=== PATIENT | female | born 1980 | race Caucasian/White ===

== ENCOUNTER 2018-04-20 21:34 | Emergency (ER) | payer OTHER, MEDICAID, SELFPAY ==
[2018-04-20 21:49] VITALS: BP 132/74; PULSE 80; RESP 18; TEMP 37.3; O2SAT 98; BMI 33.7
[2018-04-20 22:54] VITALS: BP 140/75; PULSE 90; RESP 19; O2SAT 100
--- NOTE | 2018-04-20 22:59 | DI.US.S_ITS ---
PROCEDURE: US OB <= 14 WEEKS FETUS INDICATIONS: 7weeks , pelvic pain, spotting OUTSIDE/PRIOR DATING DATA: Last menstrual period (LMP): Unknown LMP-based estimated date of delivery (RAGHAV): N./A.. First dating scan (date and location): 04/20/18. Estimated date of delivery (RAGHAV) from first dating scan: 12/11/18. TECHNIQUE: Real-time scanning was performed of the fetus and maternal pelvic organs, with image documentation. Endovaginal scanning was also performed to better visualize the fetus and maternal ovaries. COMPARISON: None. FINDINGS: Embryo: [place]-rump length measures 6 mm corresponding to 6 weeks 3 days. Heart rate measures 122 beats per minute. No perigestational site bleed. Measurement variability in dating: +/- 4 weeks by LMP, +/- 7 days by mean sac diameter (use before 6 weeks gestation if crown-rump length not able to be measured), +/- 5 days by crown-rump length (up to 8 weeks 6 days gestation), +/- 7 days by crown-rump length (up to 13 weeks 6 days gestation). Maternal organs: Ovaries within normal limits. No adnexal masses. Impression: 6 week 3 day single living IUP. Dictated by: Hunter Christie [facility] Interpreted: Juan Roach MD on 04/21/2018 at 7:45 Approved by: Juan Roach M.D. on 04/21/2018 at 14:50
[2018-04-20 23:17] LABS: Add Manual Diff / Slide Review NO; Basophils Percent Auto 0.8 % (0-2); Eosinophils Percent Auto 1.1 % (2-4); Hematocrit 39.7 % (36-46); Hemoglobin 13.7 g/dL (12.0-16.0); Lymphocytes Percent Auto 27.7 % (25-40); Mean Corpuscular HGB Conc 34.6 % (30-36); Mean Corpuscular Hemoglobin 32.4 PG (26-34); Mean Corpuscular Volume 93.5 fL (80-100); Monocytes Percent Auto 6.6 % (3-14); Neutrophils Absolute Auto 6400 /uL (3000-5900); Neutrophils Percent Auto 63.8 % (50-75); Platelet Count 202 X10^3/uL (150-400); Red Blood Cell Count 4.24 X10^6/uL (4.0-5.2); Red Cell Distribution Width 13.7 % (11.6-14.8)
[2018-04-20 23:29] LABS: Alanine Aminotransferase 27 IU/L (9-52); Albumin 4.3 g/dL (3.5-5.0); Albumin Globulin Ratio 1.4 (1.0-2.8); Alkaline Phosphatase 53 U/L (38-126); Aspartate Aminotransferase 20 IU/L (14-36); Bilirubin Total 0.5 mg/dL (0.2-1.3); Blood Urea Nitrogen 10 mg/dL (7-17); Calcium 9.6 mg/dL (8.4-10.2); Carbon Dioxide 22 mmol/L (22-32); Chloride 104 mmol/L (98-107); Estimated Glomerular Filt Rate > 60.0 mL/min (>60); Glucose 81 mg/dL (70-100); HEMOLYSIS < 15 (0-50); Potassium 3.5 mmol/L (3.4-5.1); Sodium 138 mmol/L (137-145); Total Protein 7.3 g/dL (6.3-8.2)
--- NOTE | 2018-04-21 00:03 | ED.FEMALEGU ---
HPI - Female Genitourinary General Chief complaint: OB/Uterine Contractions Stated complaint: VAGINAL DISCHARGE, POSSIBLY Time Seen by Provider: 04/20/18 22:13 Source: patient Mode of arrival: ambulatory Limitations: no limitations History of Present Illness HPI Narrative: Patient is a at 7 weeks with a chief complaint mild pinkish discharge and some suprapubic tenderness over the course of the day. She denies provocation, palliation or radiation of her symptoms. She denies fever or chills. She has had no nausea or vomiting. She denies any other vaginal discharge nor dysuria, frequency or urgency. MD Complaint: pelvic pain Onset (ago): hour(s) Location: suprapubic Female Urogenital Radiation: Suprapubic Severity: mild Quality: Cramping Duration: constant Relieving factors: none Exacerbating factors: none Vaginal discharge: other (Pinkish) Patient : Yes Associated symptoms: denies other symptoms Related Data Previous Rx's Medication Instructions Recorded amoxicillin 500 mg PO BID #20 tab 07/20/17 Allergies Allergy/AdvReac Type Severity Reaction Status Date / Time pollen extracts Allergy Unknown Unverified 11/17/17 12:54 [POLLEN EXTRACTS] CATS Allergy Unknown Uncoded 11/17/17 12:54 Review of Systems Review of Systems All systems reviewed & are unremarkable except as noted in HPI and below Constitutional Denies chills, Denies fever(s), Denies lethargy and Denies weakness Eyes Denies change in vision, Denies eye discharge, Denies irritation and Denies loss of vision ENT Ears, Nose, Mouth, and Throat: Denies change in voice, Denies neck pain and Denies sore throat Cardiovascular Denies chest pain, Denies irregular heart rhythm, Denies lightheadedness, Denies palpitations, Denies dyspnea, Denies dyspnea on exertion and Denies orthopnea Respiratory Denies cough, Denies dyspnea, Denies dyspnea on exertion and Denies wheezing Gastrointestinal Gastrointestinal: Denies abdominal pain, Denies change in bowel habits, Denies diarrhea, Denies nausea and Denies vomiting Genitourinary Reports abnormal vaginal bleeding, Denies hematuria, Denies flank pain, Denies urinary incontinence and Denies urinary urgency Musculoskeletal Denies neck pain Integumentary/Breasts Denies pruritus, Denies erythema, Denies rash and Denies wounds Neurologic Denies confusion, Denies loss of vision and Denies weakness Psychiatric Denies anxiety, Denies confusion, Denies depression, Denies homicidal ideation and Denies suicidal ideation Endocrine Denies palpitations Hematologic/Lymphatic Denies easy bruising Allergic/Immunologic Denies wheezing [facility] Social History Smoking Status: Former smoker Exam Narrative Exam Narrative: GEN: AOx3 and in mild distress EYES: Pupils are equal, round, and reactive to light and accommodation. Extraoccular muscles are intact bilaterally. There is no subconjunctival hemorrhage or exudate. CHEST: Lungs are clear to auscultation bilaterally and free of wheezes, rales, or rhonchi. Heart rate is regular rhythm, there are no murmurs, clicks, rubs, or gallops. There is no chest wall tenderness. ABD: Abdomen is soft and nontender. There is no guarding or rebound. Bowel sounds are normal in all 4 quadrants. There is no mass or organomegaly. EXT: Full painless ROM of all extremities with no loss of sensation or strength. SKIN: Warm, pink, and dry. No erythema or rash Initial Vital Signs Initial Vital Signs: Vital Signs Temperature 99.2 F 04/20/18 21:49 Pulse Rate 80 04/20/18 21:49 Respiratory Rate 18 04/20/18 21:49 Blood Pressure 132/74 04/20/18 21:49 Pulse Oximetry 98 04/20/18 21:49 Course Orders Ordered: ED Orders 04/20/18 22:59 US OB <= 14 weeks fetus Stat 04/20/18 23:05 ABO RH Type Stat Complete Blood Count AUTO DIFF Stat Comprehensive Metabolic Panel Stat Vital Signs - 8 hr 04/20/18 21:49 04/20/18 22:54 Temperature 99.2 F Pulse Rate 80 90 Respiratory Rate 18 19 Blood Pressure 132/74 Blood Pressure [Left Arm] 140/75 Pulse Oximetry 98 100 MDM - Female Genitourinary Medical Records Attestation: I reviewed the patient's medical records. Lab Data Result diagrams: 04/20/18 23:05 04/20/18 23:05 Lab Results 04/20/18 04/20/18 04/20/18 Range/Units 23:05 23:05 23:05 WBC 10.0 (4.5-11.0) X10^3/uL RBC 4.24 (4.0-5.2) X10^6/uL Hgb 13.7 (12.0-16.0) g/dL Hct 39.7 (36-46) % MCV 93.5 (80-100) fL MCH 32.4 (26-34) PG MCHC 34.6 (30-36) % RDW 13.7 (11.6-14.8) % Plt Count 202 (150-400) X10^3/uL Neut % (Auto) 63.8 (50-75) % Lymph % (Auto) 27.7 (25-40) % [place] % (Auto) 6.6 (3-14) % Eos % (Auto) 1.1 L (2-4) % Baso % (Auto) 0.8 (0-2) % Neut # (Auto) 6400 H (5188-7071) /uL Sodium 138 (137-145) mmol/L Potassium 3.5 (3.4-5.1) mmol/L Chloride 104 (98-107) mmol/L Carbon Dioxide 22 (22-32) mmol/L BUN 10 (7-17) mg/dL Creatinine 0.50 L (0.52-1.04) mg/dL Estimated GFR > 60.0 (>60) mL/min BUN/Creatinine Ratio 20.0 (6-22) Glucose 81 (70-100) mg/dL Calcium 9.6 (8.4-10.2) mg/dL Total Bilirubin 0.5 (0.2-1.3) mg/dL AST 20 (14-36) IU/L ALT 27 (9-52) IU/L Alkaline Phosphatase 53 (38-126) U/L Total Protein 7.3 (6.3-8.2) g/dL Albumin 4.3 (3.5-5.0) g/dL Globulin 3.0 (1.7-4.1) g/dL Albumin/Globulin Ratio 1.4 (1.0-2.8) Blood Type A Positive Point of Care Testing Test Results Positive Urine Dip Bedside Urine Glucose Negative Bedside Urine Bilirubin - Negative Bedside Urine Ketone +++ 80 Urine Specific [place] 1.030 Bedside Urine Occult Blood - Negative Bedside Urine pH 6.0 Bedside Urine Protein +/- 15 Bedside Urine Urobilinogen - Negative Bedside Urine Nitrite - Negative Bedside Urine Leukocytes - Negative Esterase Imaging Data US - abdomen: Radiologist's impression: [address] [address] Ultrasound Report Signed Patient: Ericka OsorioMR#: [id number] : 1980Acct:[id number] Age/Sex: 37 / FDate of Service: 04/20/18 Loc: ED Accession Number: [id number] Procedure: US OB <= 14 weeks fetus Ordering Provider: Walt Acharya D.O. PROCEDURE: US OB <= 14 WEEKS FETUS INDICATIONS: 7weeks , pelvic pain, spotting OUTSIDE/PRIOR DATING DATA: Last menstrual period (LMP): Unknown LMP-based estimated date of delivery (RAGHAV): N./A.. First dating scan (date and location): 04/20/18. Estimated date of delivery (RAGHAV) from first dating scan: 12/11/18. TECHNIQUE: Real-time scanning was performed of the fetus and maternal pelvic organs, with image documentation. Endovaginal scanning was also performed to better visualize the fetus and maternal ovaries. COMPARISON: None. FINDINGS: Embryo: [place]-rump length measures 6 mm corresponding to 6 weeks 3 days. Heart rate measures 122 beats per minute. No perigestational site bleed. Measurement variability in dating: +/- 4 weeks by LMP, +/- 7 days by mean sac diameter (use before 6 weeks gestation if crown-rump length not able to be measured), +/- 5 days by crown-rump length (up to 8 weeks 6 days gestation), +/- 7 days by crown-rump length (up to 13 weeks 6 days gestation). Maternal organs: Ovaries within normal limits. No adnexal masses. Impression: 6 week 3 day single living IUP. Dictated by: Hunter Christie [facility] Interpreted: Juan Roach MD on 04/21/2018 at 7:45 Approved by: Juan Roach M.D. on 04/21/2018 at 14:50 Discharge Plan Departure Patient Disposition: Home Clinical Impression: Pelvic pain affecting Discharge Date/Time: 04/21/18 00:48 Interventions: ED Discharge Assessment Last Done: 04/21/18 00:47 Instructions: DI for Pelvic Pain Activity Restrictions/Additional Instructions: *You have been diagnosed with [ pelvic pain in ] *What to do: *Follow up with Dr. Cat, call for an appointment. Let them know you were seen in the Emergency Department and that we ask that you be seen in follow up *Return to ER if you should have any new, worsening or concerning symptoms, such as [increased bleeding, pain or fever over 101 F ] Prescriptions: No Action amoxicillin 500 MG tablet 500 mg PO BID Qty: 20 RF: 0 Referrals: Mala Cat MD [Primary Care Provider] -
[2018-04-21 00:47] VITALS: BP 106/70; PULSE 80; RESP 18; O2SAT 98
--- NOTE | 2018-04-22 04:32 | ED_ITS ---
HPI - Female Genitourinary General Chief complaint: OB/Uterine Contractions Stated complaint: VAGINAL DISCHARGE, POSSIBLY Time Seen by Provider: 04/20/18 22:13 Source: patient Mode of arrival: ambulatory Limitations: no limitations History of Present Illness HPI Narrative: Patient is a at 7 weeks with a chief complaint mild pinkish discharge and some suprapubic tenderness over the course of the day. She denies provocation, palliation or radiation of her symptoms. She denies fever or chills. She has had no nausea or vomiting. She denies any other vaginal discharge nor dysuria, frequency or urgency. MD Complaint: pelvic pain Onset (ago): hour(s) Location: suprapubic Female Urogenital Radiation: Suprapubic Severity: mild Quality: Cramping Duration: constant Relieving factors: none Exacerbating factors: none Vaginal discharge: other (Pinkish) Patient : Yes Associated symptoms: denies other symptoms Related Data Previous Rx's Medication Instructions Recorded amoxicillin 500 mg PO BID #20 tab 07/20/17 Allergies Allergy/AdvReac Type Severity Reaction Status Date / Time pollen extracts Allergy Unknown Unverified 11/17/17 12:54 [POLLEN EXTRACTS] CATS Allergy Unknown Uncoded 11/17/17 12:54 Review of Systems Review of Systems All systems reviewed & are unremarkable except as noted in HPI and below Constitutional Denies chills, Denies fever(s), Denies lethargy and Denies weakness Eyes Denies change in vision, Denies eye discharge, Denies irritation and Denies loss of vision ENT Ears, Nose, Mouth, and Throat: Denies change in voice, Denies neck pain and Denies sore throat Cardiovascular Denies chest pain, Denies irregular heart rhythm, Denies lightheadedness, Denies palpitations, Denies dyspnea, Denies dyspnea on exertion and Denies orthopnea Respiratory Denies cough, Denies dyspnea, Denies dyspnea on exertion and Denies wheezing Gastrointestinal Gastrointestinal: Denies abdominal pain, Denies change in bowel habits, Denies diarrhea, Denies nausea and Denies vomiting Genitourinary Reports abnormal vaginal bleeding, Denies hematuria, Denies flank pain, Denies urinary incontinence and Denies urinary urgency Musculoskeletal Denies neck pain Integumentary/Breasts Denies pruritus, Denies erythema, Denies rash and Denies wounds Neurologic Denies confusion, Denies loss of vision and Denies weakness Psychiatric Denies anxiety, Denies confusion, Denies depression, Denies homicidal ideation and Denies suicidal ideation Endocrine Denies palpitations Hematologic/Lymphatic Denies easy bruising Allergic/Immunologic Denies wheezing [facility] Social History Smoking Status: Former smoker Exam Narrative Exam Narrative: GEN: AOx3 and in mild distress EYES: Pupils are equal, round, and reactive to light and accommodation. Extraoccular muscles are intact bilaterally. There is no subconjunctival hemorrhage or exudate. CHEST: Lungs are clear to auscultation bilaterally and free of wheezes, rales, or rhonchi. Heart rate is regular rhythm, there are no murmurs, clicks, rubs, or gallops. There is no chest wall tenderness. ABD: Abdomen is soft and nontender. There is no guarding or rebound. Bowel sounds are normal in all 4 quadrants. There is no mass or organomegaly. EXT: Full painless ROM of all extremities with no loss of sensation or strength. SKIN: Warm, pink, and dry. No erythema or rash Initial Vital Signs Initial Vital Signs: Vital Signs Temperature 99.2 F 04/20/18 21:49 Pulse Rate 80 04/20/18 21:49 Respiratory Rate 18 04/20/18 21:49 Blood Pressure 132/74 04/20/18 21:49 Pulse Oximetry 98 04/20/18 21:49 Course Orders Ordered: ED Orders 04/20/18 22:59 US OB <= 14 weeks fetus Stat 04/20/18 23:05 ABO RH Type Stat Complete Blood Count AUTO DIFF Stat Comprehensive Metabolic Panel Stat Vital Signs - 8 hr 04/20/18 21:49 04/20/18 22:54 Temperature 99.2 F Pulse Rate 80 90 Respiratory Rate 18 19 Blood Pressure 132/74 Blood Pressure [Left Arm] 140/75 Pulse Oximetry 98 100 MDM - Female Genitourinary Medical Records Attestation: I reviewed the patient's medical records. Lab Data Result diagrams: 04/20/18 23:05 04/20/18 23:05 Lab Results 04/20/18 04/20/18 04/20/18 Range/Units 23:05 23:05 23:05 WBC 10.0 (4.5-11.0) X10^3/uL RBC 4.24 (4.0-5.2) X10^6/uL Hgb 13.7 (12.0-16.0) g/dL Hct 39.7 (36-46) % MCV 93.5 (80-100) fL MCH 32.4 (26-34) PG MCHC 34.6 (30-36) % RDW 13.7 (11.6-14.8) % Plt Count 202 (150-400) X10^3/uL Neut % (Auto) 63.8 (50-75) % Lymph % (Auto) 27.7 (25-40) % [place] % (Auto) 6.6 (3-14) % Eos % (Auto) 1.1 L (2-4) % Baso % (Auto) 0.8 (0-2) % Neut # (Auto) 6400 H (3075-2697) /uL Sodium 138 (137-145) mmol/L Potassium 3.5 (3.4-5.1) mmol/L Chloride 104 (98-107) mmol/L Carbon Dioxide 22 (22-32) mmol/L BUN 10 (7-17) mg/dL Creatinine 0.50 L (0.52-1.04) mg/dL Estimated GFR > 60.0 (>60) mL/min BUN/Creatinine Ratio 20.0 (6-22) Glucose 81 (70-100) mg/dL Calcium 9.6 (8.4-10.2) mg/dL Total Bilirubin 0.5 (0.2-1.3) mg/dL AST 20 (14-36) IU/L ALT 27 (9-52) IU/L Alkaline Phosphatase 53 (38-126) U/L Total Protein 7.3 (6.3-8.2) g/dL Albumin 4.3 (3.5-5.0) g/dL Globulin 3.0 (1.7-4.1) g/dL Albumin/Globulin Ratio 1.4 (1.0-2.8) Blood Type A Positive Point of Care Testing Test Results Positive Urine Dip Bedside Urine Glucose Negative Bedside Urine Bilirubin - Negative Bedside Urine Ketone +++ 80 Urine Specific [place] 1.030 Bedside Urine Occult Blood - Negative Bedside Urine pH 6.0 Bedside Urine Protein +/- 15 Bedside Urine Urobilinogen - Negative Bedside Urine Nitrite - Negative Bedside Urine Leukocytes - Negative Esterase Imaging Data US - abdomen: Radiologist's impression: [address] [address] Ultrasound Report Signed Patient: Ericka OsorioMR#: [id number] : 1980Acct:[id number] Age/Sex: 37 / FDate of Service: 04/20/18 Loc: ED Accession Number: [id number] Procedure: US OB <= 14 weeks fetus Ordering Provider: Walt Acharya D.O. PROCEDURE: US OB <= 14 WEEKS FETUS INDICATIONS: 7weeks , pelvic pain, spotting OUTSIDE/PRIOR DATING DATA: Last menstrual period (LMP): Unknown LMP-based estimated date of delivery (RAGHAV): N./A.. First dating scan (date and location): 04/20/18. Estimated date of delivery (RAGHAV) from first dating scan: 12/11/18. TECHNIQUE: Real-time scanning was performed of the fetus and maternal pelvic organs, with image documentation. Endovaginal scanning was also performed to better visualize the fetus and maternal ovaries. COMPARISON: None. FINDINGS: Embryo: [place]-rump length measures 6 mm corresponding to 6 weeks 3 days. Heart rate measures 122 beats per minute. No perigestational site bleed. Measurement variability in dating: +/- 4 weeks by LMP, +/- 7 days by mean sac diameter (use before 6 weeks gestation if crown-rump length not able to be measured), +/ - 5 days by crown-rump length (up to 8 weeks 6 days gestation), +/- 7 days by crown-rump length (up to 13 weeks 6 days gestation). Maternal organs: Ovaries within normal limits. No adnexal masses. Impression: 6 week 3 day single living IUP. Dictated by: Hunter Christie [facility] Interpreted: Juan Roach MD on 04/21/2018 at 7: 45 Approved by: Juan Roach M.D. on 04/21/2018 at 14:50 Discharge Plan Departure Patient Disposition: Home Clinical Impression: Pelvic pain affecting Discharge Date/Time: 04/21/18 00:48 Interventions: ED Discharge Assessment Last Done: 04/21/18 00:47 Instructions: DI for Pelvic Pain Activity Restrictions/Additional Instructions: *You have been diagnosed with [ pelvic pain in ] *What to do: *Follow up with Dr. Cat, call for an appointment. Let them know you were seen in the Emergency Department and that we ask that you be seen in follow up *Return to ER if you should have any new, worsening or concerning symptoms , such as [increased bleeding, pain or fever over 101 F ] Prescriptions: No Action amoxicillin 500 MG tablet 500 mg PO BID Qty: 20 RF: 0 Referrals: Mala Cat MD [Primary Care Provider] -
== END 2018-04-21 00:48 | disposition home or self-care (01) ==
PROVIDERS: Emergency Provider Emergency Medicine; PCP Obstetrics & Gynecology
DX: O26.891 Other specified pregnancy related conditions, first trimester (principal); R10.2 Pelvic and perineal pain; Z3A.08 8 weeks gestation of pregnancy
CPT/HCPCS: 36415; 76801; 76817; 80053; 81003; 81025; 85025; 86900; 86901; 99282; 99284

== ENCOUNTER → 2018-05-02 14:06 | Outpatient (CLI) | payer OTHER, MEDICAID, SELFPAY ==
[2018-05-02 14:32] LABS: Add Manual Diff / Slide Review NO; Basophils Percent Auto 0.4 % (0-2); Eosinophils Percent Auto 0.5 % (2-4); Hematocrit 39.6 % (36-46); Hemoglobin 13.5 g/dL (12.0-16.0); Lymphocytes Percent Auto 20.7 % (25-40); Mean Corpuscular Hemoglobin 32.3 PG (26-34); Monocytes Percent Auto 5.1 % (3-14); Neutrophils Absolute Auto 5800 /uL (3000-5900); Neutrophils Percent Auto 73.3 % (50-75); Platelet Count 221 X10^3/uL (150-400); Red Blood Cell Count 4.17 X10^6/uL (4.0-5.2); Red Cell Distribution Width 13.9 % (11.6-14.8); White Blood Cell Count 7.9 X10^3/uL (4.5-11.0)
[2018-05-02 14:35] LABS: Appearance Urine UA CLEAR; Bilirubin Urine UA NEGATIVE (NEGATIVE); Color Urine UA YELLOW; Glucose Urine UA NEGATIVE (Normal); Ketones Urine UA NEGATIVE (NEGATIVE); Leukocyte Esterase Urine UA NEGATIVE (NEGATIVE); Nitrite Urine UA Negative (Negative); Occult Blood Urine UA NEGATIVE (Negative); Protein Urine UA NEGATIVE (Negative); Urobilinogen Urine UA 0.2 E.U./dL (0.2); pH Urine UA 6.5 (4.5-8.0)
[2018-05-02 15:53] LABS: Hepatitis B Surface Antigen NEGATIVE s/c (NEGATIVE); Rubella Antibody IgG 47.8 IU/mL (>15)
[2018-05-02 16:22] LABS: HIV 1 and 2 Antibody NEGATIVE (NEGATIVE); Hep C Virus Ab w/Reflex Quant NEGATIVE s/c (NEGATIVE)
[2018-05-05 20:59] LABS: Rapid Plasma Reagin NON-REACTIVE
== END ==
PROVIDERS: PCP Obstetrics & Gynecology; Visit Provider Obstetrics & Gynecology
DX: Z34.01 Encounter for supervision of normal first pregnancy, first trimester (principal); Z3A.01 Less than 8 weeks gestation of pregnancy
CPT/HCPCS: 36415; 80055; 81003; 86695; 86696; 86703; 86787; 86803; 86850; 86900; 86901; 87086

== ENCOUNTER → 2018-05-18 11:10 | Outpatient (CLI) | payer OTHER, MEDICAID, SELFPAY ==
[2018-05-18 11:46] LABS: Specimen Label KIT TEST
== END ==
PROVIDERS: PCP Obstetrics & Gynecology; Visit Provider Obstetrics & Gynecology
DX: O09.529 Supervision of elderly multigravida, unspecified trimester (principal)
CPT/HCPCS: 36415

== ENCOUNTER → 2018-06-29 12:36 | Outpatient (CLI) | payer OTHER, MEDICAID, SELFPAY ==
[2018-07-08 17:26] LABS: AFP, Serum 30.6 ng/mL; Calc Gestational Age 16.4; Est Date Determined by US; Maternal Weight 208 lbs; Mother Ethnic Origin NOT GIVEN; Number of Fetuses NOT GIVEN; Prev Pregnancies Down Syndrome NOT GIVEN
== END ==
PROVIDERS: PCP Obstetrics & Gynecology; Visit Provider Obstetrics & Gynecology
DX: Z34.02 Encounter for supervision of normal first pregnancy, second trimester (principal)
CPT/HCPCS: 36415; 82105

== ENCOUNTER → 2018-07-19 10:10 | Outpatient (CLI) | payer OTHER, MEDICAID, SELFPAY ==
--- NOTE | 2018-07-19 10:12 | DI.US.S_ITS ---
PROCEDURE: US OB >= 14 WEEKS FETUS INDICATIONS: ANATOMY OUTSIDE/PRIOR DATING DATA: Last menstrual period (LMP): Unknown. LMP-based estimated date of delivery (RAGHAV): N./A.. First dating scan (date and location): 04/20/18. Estimated date of delivery (RAGHAV) from first dating scan: 12/11/18. TECHNIQUE: Real-time scanning was performed of the fetus, with image documentation and biometric measurements. Endovaginal scanning: No COMPARISON: [facility], , OB >= 14 WEEKS FETUS, 06/29/2018, 12:27. FINDINGS: General: A single living intrauterine gestation is present. Presentation: Transverse. Placenta: Placental position is anterior, without previa. Amniotic fluid index: 13.7 cm, normal range is 5-24 cm. heart rate: 141 beats per minute. Maternal cervical canal: 3.1 cm long. Normal lower limit is 2.5 cm. biometrics: Biparietal diameter: 18 weeks 4 days Head circumference: 19 weeks 1 day Abdominal circumference: 19 weeks 5 days Femur length: 19 weeks 6 days Estimated gestational age from initial scan: 19 weeks 2 days Composite gestational age from present scan: 19 weeks 2 days Estimated weight and percentile: 306 g; 68 percentile Measurement variability for biometric dating: +/- 7 days from 14 weeks to 15 weeks 6 days gestation, +/- 10 days from 16 weeks to 21 weeks 6 days gestation, +/- 2 weeks from 22 weeks to 27 weeks 6 days gestation, +/- 3 weeks for 28 weeks gestation or later. weight reference: 4500 g or EFW >90/95% is considered macrosomia or large for gestational age. EFW <10% is small for gestational age. EFW 5% or less is considered intra-uterine growth restriction. Anatomic survey: Neuro: Ventricles are non-dilated at less than 10 mm. Cisterna magna is normal at 3-11 mm. Cerebellum is normal in size and morphology. Nuchal skin fold: Normal at less than 6 mm between 14-21 weeks gestational age. Face: Nose and lips, facial profile are normal. Spine: No evidence for spina bifida. Heart: 4-chambered heart is present, with normal ventricular outflow tracts. Diaphragm: Diaphragm is intact. Stomach: Left-sided stomach is present. Kidneys: No hydronephrosis. Normal is less than 5 mm in 2nd trimester, less than 7 mm in 3rd trimester. Cord: 3-vessel cord has orthotopic insertion. Bladder: Normal in size. Extremities: All 4 extremities identified. IMPRESSION: 1. Single living IUP redemonstrated and interval growth is normal. 2. Normal anatomy. Dictated by: Hunter ROSE Interpreted: Judith Hernandez MD on 07/19/2018 at 12:55 Approved by: Judith Hernandez M.D. on 07/19/2018 at 14:46
== END ==
PROVIDERS: Visit Provider Obstetrics & Gynecology
DX: Z34.02 Encounter for supervision of normal first pregnancy, second trimester (principal); Z36.89 Encounter for other specified antenatal screening; Z3A.19 19 weeks gestation of pregnancy
CPT/HCPCS: 76811

== ENCOUNTER → 2018-08-31 10:57 | Outpatient (CLI) | payer OTHER, MEDICAID, SELFPAY ==
[2018-08-31 12:30] LABS: Hematocrit 34.4 % (36-46); Hemoglobin 11.9 g/dL (12.0-16.0)
[2018-08-31 12:43] LABS: GTT (PREG) 1 Hour PP 50gm Dose 83 mg/dL (76-139)
== END ==
PROVIDERS: Visit Provider Obstetrics & Gynecology
DX: Z34.02 Encounter for supervision of normal first pregnancy, second trimester (principal)
CPT/HCPCS: 36415; 82950; 85014; 85018

== ENCOUNTER → 2018-11-17 12:44 | Outpatient (CLI) | payer OTHER, MEDICAID, SELFPAY ==
[2018-11-18 14:00] LABS: Strep Grp B PCR NEG for Grp B Strep
== END ==
PROVIDERS: Visit Provider Obstetrics & Gynecology
DX: Z34.83 Encounter for supervision of other normal pregnancy, third trimester (principal); Z3A.35 35 weeks gestation of pregnancy
CPT/HCPCS: 87653

== ENCOUNTER 2018-12-12 09:59 | Outpatient (CLI) | payer OTHER, MEDICAID, SELFPAY ==
--- NOTE | 2018-12-12 10:36 | P.TNLD_ITS ---
Visit Information Visit Information Date of evaluation: 12/12/18 Primary OB Provider: Mala Cat On-call OB Provider: Emeli Falcon Reason for Evaluation: Yes non-stress test non-stress test reason: other (AMA) [facility] Medical History (Updated 12/12/18 @ 10:36 by Emeli Falcon MD) Acne (Chronic ~1992) Seasonal allergies (Chronic ~2003) Abnormal Pap smear of cervix (Resolved ~2013) Chicken pox (Resolved ~1983) Human papilloma virus (Resolved ~2013) Surgical History (Updated 10/03/18 @ 05:13 by Mala Cat MD) S/P LEEP (Resolved ~2013) Family History (Updated 05/03/18 @ 19:26 by Avril Wallace) Grandfather Hypertension Grandfather Hyperlipidemia Hypertension Social History Smoking Status: Former smoker Social History Smoking Status: Former smoker Evaluation Evaluation Baseline heart rate: 120 Variability: Moderate (11-25) monitor accelerations: Present monitor decelerations: Absent Category of Tracing: I Diagnosis, Plan/Disposition Final Diagnosis (1) Elderly primigravida: Current Visit: No Status: Acute (2) 40 weeks gestation of : Current Visit: Yes Status: Acute Plan/Disposition Plan: Reactive NST Initial BP elevated, subsequent in normal range x2 Plan for IOL in 2 days as scheduled OB Disposition: home
== END 2018-12-12 10:40 | disposition home or self-care (01) ==
LOC: LABOR 10:04 → OB 12-13 16:39
PROVIDERS: Visit Provider Obstetrics & Gynecology
DX: O09.519 Supervision of elderly primigravida, unspecified trimester (principal); Z3A.40 40 weeks gestation of pregnancy
CPT/HCPCS: 59025; G0378; G0379

== ENCOUNTER 2018-12-14 07:07 | Inpatient (IN) | payer OTHER, MEDICAID, SELFPAY ==
[2018-12-14 08:35] LABS: Add Manual Diff / Slide Review NO; Basophils Absolute Auto 100 /uL (0-100); Basophils Percent Auto 0.7 % (0-2); Eosinophils Absolute Auto 100 /uL (0-450); Eosinophils Percent Auto 0.9 % (2-4); Hematocrit 34.7 % (36-46); Hemoglobin 12.1 g/dL (12.0-16.0); Lymphocytes Absolute Auto 2100 /uL (1100-4500); Lymphocytes Percent Auto 19.8 % (25-40); Mean Corpuscular HGB Conc 34.8 % (30-36); Mean Corpuscular Hemoglobin 32.8 PG (26-34); Mean Corpuscular Volume 94.3 fL (80-100); Monocytes Absolute Auto 500 /uL (0-900); Monocytes Percent Auto 5.2 % (3-14); Neutrophils Absolute Auto 7600 /uL (1500-7000); Neutrophils Percent Auto 73.4 % (50-75); Platelet Count 186 X10^3/uL (150-400); Red Blood Cell Count 3.68 X10^6/uL (4.0-5.2); Red Cell Distribution Width 13.3 % (11.6-14.8); White Blood Cell Count 10.4 X10^3/uL (4.5-11.0)
[2018-12-14] MEDS: OXYTOCIN PREMIX 30 UNIT/500 ML PLAST..BAG IV (08:44)
[2018-12-14] MEDS: LACTATED RINGERS 1,000 ML 100 ML IV ×2 (08:45→17:58)
--- NOTE | 2018-12-14 13:23 | PM.OBHP.1 ---
OB HPI Date/Time Date of admission: 12/14/18 Date Patient Seen: 12/14/18 Time Patient Seen: 09:00 History of Present Condition Chief complaint: labor & delivery : 3 Para: 0 Estimated Date of Delivery: 12/11/18 Estimated Gestational Age (weeks): 40 Narrative: Ericka Osorio is a 37 year old female admitted for induction for 40 week gestation and advanced maternal age Indications Indication for induction OB: post dates History of Present care: good care, initiated at week # (8), number of visits (12) and pounds weight gain (26) Dating criteria: LMP confirmed by 1st trimester US Ultrasounds: normal mid trimester US Obstetrical complications: none Medical complications: none Preadmission Labs Blood type: A (+) positive -: Antibody screen: negative, GBS status: negative, HBsAG: negative, HIV: negative, HSV 1: positive, HSV 2: positive and RPR/VDLR: negative -: Chlamydia screen: not detected and Gonorrhea screen: not detected -: Rubella: immune and Varicella: immune HCAB: negative PAP: Normal Cell-free DNA: Normal female 1 hr GTT: 83 Evaluation Evaluation Baseline heart rate: 140 Variability: Moderate (11-25) monitor accelerations: Present monitor decelerations: Absent Laboratory results: Laboratory Tests 12/14/18 12/14/18 08:15 08:15 WBC 10.4 RBC 3.68 L Hgb 12.1 Hct 34.7 L MCV 94.3 MCH 32.8 MCHC 34.8 RDW 13.3 Plt Count 186 Neut % (Auto) 73.4 Lymph % (Auto) 19.8 L Lander % (Auto) 5.2 Eos % (Auto) 0.9 L Baso % (Auto) 0.7 Neut # (Auto) 7600 H Lymph # (Auto) 2100 Lander # (Auto) 500 Eos # (Auto) 100 Baso # (Auto) 100 Blood Type A Positive Antibody Screen Negative [facility] Medical History (Updated 12/12/18 @ 10:36 by Emeli Falcon MD) Acne (Chronic ~1992) Seasonal allergies (Chronic ~2003) Abnormal Pap smear of cervix (Resolved ~2013) Chicken pox (Resolved ~1983) Human papilloma virus (Resolved ~2013) Surgical History (Updated 10/03/18 @ 05:13 by Mala Cat MD) S/P LEEP (Resolved ~2013) Family History (Updated 05/03/18 @ 19:26 by Avril Wallace) Grandfather Hypertension Grandfather Hyperlipidemia Hypertension Social History Smoking Status: Former smoker Social History Smoking Status: Former smoker Meds Home Medications Medication Instructions Recorded Confirmed Type 1 tab PO DAILY 05/02/18 12/14/18 History vitamin,calcium,pyfckbem-rzqk-lhqea acid tablet Double Electric Breast Pump 1 each TOP .prn #1 each 11/02/18 12/14/18 Rx Allergies Allergy/AdvReac Type Severity Reaction Status Date / Time pollen extracts Allergy Unknown Unverified 05/02/18 13:39 [POLLEN EXTRACTS] CATS Allergy Unknown Uncoded 05/02/18 13:39 Review of Systems Review of Systems Patient denies any signs or symptoms of preeclampsia. Good movement. No rupture membranes. No fevers. All systems reviewed & are unremarkable except as noted in HPI and below Exam Vital Signs (past 8 hours): Blood pressure 137/89, pulse of 79, temperature 98.5? Narrative Exam Narrative: HEENT exam within normal limits. Lungs are clear to auscultation percussion. Heart is regular rate and rhythm no S3-S4 or murmurs. Abdomen is gravid. Infant is vertex. Extremities without edema and nontender. Objective Labs Result Diagrams: 12/14/18 08:15 Labs: Laboratory Results - last 24 hr 12/14/18 12/14/18 08:15 08:15 WBC 10.4 RBC 3.68 L Hgb 12.1 Hct 34.7 L MCV 94.3 MCH 32.8 MCHC 34.8 RDW 13.3 Plt Count 186 Neut % (Auto) 73.4 Lymph % (Auto) 19.8 L Lander % (Auto) 5.2 Eos % (Auto) 0.9 L Baso % (Auto) 0.7 Neut # (Auto) 7600 H Lymph # (Auto) 2100 Lander # (Auto) 500 Eos # (Auto) 100 Baso # (Auto) 100 Blood Type A Positive Antibody Screen Negative Assessment and Plan Assessment and Plan Assessment and Plan narrative: 40 week gestation admitted for induction. Patient will be started on Pitocin. Time Spent with Patient Total time spent with greater than 50% in coordination of care (as documented) at patient's floor/unit and/or counseling patient:: 15-24 minutes
[2018-12-14] MEDS: LACTATED RINGERS 1,000 ML 125 ML IV (20:20)
--- NOTE | 2018-12-14 23:27 | PM.PREOP ---
Pre-operative Note Interval Note History & Physical reviewed/Exam performed by Physician: Yes Changes to H&P: Yes H&P completed within 30 days and has changed as indicated here:: failure to progress in labor, 1st stage arrest
--- NOTE | 2018-12-14 23:28 | PM.OBPNLAB ---
Date/Time Date Patient Seen: 12/14/18 Time Patient Seen: 23:28 Pain Control Pain control: epidural Pelvic Exam Dilation (cm): 4 Effacement (%): 100 station: -2 Amniotic membrane status: Ruptured Contractions Contractions on admission: regular Monitor mode: Internal Contraction frequency (min): 3 Contraction duration (min): 1 Contraction pattern: Regular Contraction intensity: Strong/Firm Intrauterine tone measurement: 80 Status status: Category l Heart Rate Baseline: 140 Monitor Accelerations: Present Monitor Decelerations: Absent Monitor Variability: Moderate Assessment and Plan Assessment: other (first stage arrest) Plan:
[2018-12-14] MEDS: CEFAZOLIN 2 GM/100 ML FROZ.PIGGY IV (23:56)
[2018-12-15] VITALS (7 sets, daily range): BP systolic 87–105; BP diastolic 51–59; PULSE 88–100; RESP 16–23; TEMP 37–37.1; O2SAT 95–98
--- NOTE | 2018-12-15 00:37 | SUR.OPER ---
Supine on Padded OR bed, head on pillow, safety belt at thigh, arms secured on padded arm boards at <90 degrees abduction. Bump under right buttock. Legs uncrossed with pillow under knees, gel pad to heels, tape over blanket to lower legs.
--- NOTE | 2018-12-15 00:59 | P.OP_ITS ---
Operative Date/Time/Diagnoses Date of procedure: 12/15/18 Time of procedure: 00:56 Pre-op diagnosis: 1st stage arrest Post-op diagnosis: same Procedure & Clinicians Procedure: Primary low-transverse section Same procedure as scheduled: Yes Indications: First stage arrest Surgeon: Gabriela Galvez Click Yes if Unassisted: Yes Anesthesia Type: Epidural Operative Notes Findings: Normal tubes, ovaries, and uterus. Viable female week weighing 7 lb 8 oz, 3400 g Closure Type: primary Specimen(s): none sent Applied: catheter Estimated Blood Loss (mL): 400 Blood products transfused: none Procedure in detail: The patient was brought to the operating room where she underwent a bolus in her epidural for anesthesia. She was placed in a supine position with a left lateral tilt. A Burdick catheter was [in] place. Pulsatile stockings were placed and functional throughout the case. 2 g of Ancef were given IV prior to the incision. Warming was in place. The patient was prepped and draped in usual sterile fashion. A low transverse incision was made with a scalpel and the incision was carried down to the fascial layer which was incised transversely with scissors. The midline attachments are superiorly and inferiorly. Some bleeding was controlled Bovie. The rectus muscles were in the midline and the peritoneal incision was made with no damage to internal structures. The peritoneum was incised and superiorly and inferiorly. Bladder blade was placed and a bladder flap was developed and the bladder held away from the lower uterine segment. An incision was made in the uterus with the scalpel and the incision was extended with stretching. The head was elevated out of the abdomen and with fundal pressure the baby was delivered. The infant was bulb suctioned for clear fluid and handed off to the warmer. Cord blood was collected. The placenta delivered spontaneously with traction. The uterus was cleaned with clean laps. The uterine incision was closed in 2 layers of 0 c hromic suture the first a running locking layer the second an imbricating layer. Due to the bogginess of the uterus patient was given Hemabate into the uterus and IM Methergine in addition to the Pitocin IV. The bladder peritoneum was repaired with 2-0 Polysorb suture. The gutters were cleaned of any remaining fluids and ovaries and tubes were observed to be normal. Adequate hemostasis was noted. The perineum was closed with 2-0 Polysorb suture. The fascia layer was closed with 0 Polysorb suture with 2 stitches. The incision was irrigated and adequate hemostasis noted. The incision was closed with interrupted 3-0 Polysorb sutures and then a subcuticular stitch of 4-0 Polysorb suture. Steri- Strips were placed. The uterus was massaged to remove any clots. The patient went to recovery room in good condition. Counts of instruments and sponges were correct. Complications: none Condition: stable Disposition: Acute Care ( center) Plan for aftercare: Routine post section
--- NOTE | 2018-12-15 01:01 | SUR.PHASEI ---
Dr. Galvez speaking to patient; checked fundus. Pt. tolerating ice chips well. Denies pain/nausea
[2018-12-15] MEDS: CARBOPROST 250 MCG/ML AMPUL INJ (01:04)
--- NOTE | 2018-12-15 01:24 | SUR.PHASEI ---
0116 To center, fundus massaged at U+1 by center RN, Family at bedside, SCDs on. Drowsy, oriented, stable. Resp unlabored. Dressing remains CDI, small vag flow. Report given. No questions/concerns
--- NOTE | 2018-12-15 01:26 | SUR.PHASEI ---
1600 total IV fluid infused from LR hung in the OR
[2018-12-15] MEDS: KETOROLAC 30 MG/ML VIAL IV ×3 (09:10→21:00)
[2018-12-15] MEDS: OXYCODONE/ACETAMINOPHEN 5/325 TABLET 2 TAB PO ×2 (09:16→21:12)
[2018-12-15] MEDS: DOCUSATE 250 MG CAPSULE PO (09:19)
[2018-12-15] MEDS: LANOLIN OINT 7 GM 1 APPLIC TOP (09:19)
[2018-12-15] MEDS: LACTATED RINGERS 1,000 ML 100 ML IV (12:09)
--- NOTE | 2018-12-15 15:44 | P.PNOB_ITS ---
Subjective - OB Patient comments: no complaints, pain well controlled, tolerating diet and flatus present baby status: doing well and nursing well [place] feeding status: exclusively breast feeding Date Patient Seen: 12/15/18 Time Patient Seen: 10:30 Interval history: Patient is a 37-year-old postop day # 0-1 status post primary low-transverse section for stage I arrest of labor Exam Vital Signs (past 8 hours): - 12/15/18 09:16 Temperature 98.7 F Oxygen Delivery Method Room Air Narrative Exam Narrative: Generally: Patient is sitting up in bed, nursing infant, no acute distress Lungs: Clear to auscultation bilaterally Cardiovascular: Regular rate and rhythm Fundus: Firm at U Incision: Clean dry and intact with Aquacel dressing Extremities: 1+ edema negative [place] Objective Labs Result Diagrams: 12/14/18 08:15 Assessment & Plan Plan day: 1 plan OB: routine postop care Time Spent With Patient Total time spent is greater than 50% in coordination of care (as documented) at patient's floor/unit and/or counseling patient: 15-24 minutes
[2018-12-16] MEDS: KETOROLAC 30 MG/ML VIAL IV (05:24)
[2018-12-16 07:40] LABS: Add Manual Diff / Slide Review NO; Basophils Absolute Auto 0 /uL (0-100); Basophils Percent Auto 0.2 % (0-2); Eosinophils Absolute Auto 100 /uL (0-450); Eosinophils Percent Auto 0.6 % (2-4); Hematocrit 27.7 % (36-46); Hemoglobin 9.6 g/dL (12.0-16.0); Lymphocytes Absolute Auto 1600 /uL (1100-4500); Lymphocytes Percent Auto 15.6 % (25-40); Mean Corpuscular HGB Conc 34.5 % (30-36); Mean Corpuscular Volume 95.8 fL (80-100); Monocytes Absolute Auto 800 /uL (0-900); Monocytes Percent Auto 7.5 % (3-14); Neutrophils Absolute Auto 7800 /uL (1500-7000); Neutrophils Percent Auto 76.1 % (50-75); Platelet Count 144 X10^3/uL (150-400); Red Cell Distribution Width 13.7 % (11.6-14.8); White Blood Cell Count 10.2 X10^3/uL (4.5-11.0)
--- NOTE | 2018-12-16 07:42 | PM.OBDS.1 ---
Discharge Providers Date of admission: 12/14/18 07:07 Discharge Date: 12/16/18 Consults: 12/14/18 08:01 Consult to Anesthesiology Urgent Comment: Consulting Provider: Anesthesiologist Reason for consultation: epidural Has provider been notified: No 12/15/18 02:17 Consult to Tar Heater Operator Routine Comment: Discharge provider: Gabriela Galvez MD Summary Date Patient Seen: 12/16/18 Time Patient Seen: 07:43 Procedures: Pitocin induction, epidural catheter, primary low-transverse section Hospital Course: Patient was admitted for postdates induction. She received epidural catheter for pain control. She had 1st stage arrest. Patient had a primary low-transverse section. She did well . She denies any signs or symptoms of preeclampsia. She is urinating and ambulating well. She is passing gas. Her pain is under control. She is breast-feeding without difficulty. Peripartum Data Delivery Method: Section Procedures: Pitocin induction, epidural catheter, primary low-transverse section complications: none [place] 1: Gender: Female Disposition of : home Discharge Diagnosis (1) Delivery by section using transverse incision of lower segment of uterus: Status: Acute (2) Acute blood loss anemia: Status: Acute Status at Discharge Cognitive/behavioral status at discharge: oriented Functional status at discharge: independent ambulation Overall status at discharge: patient is progressing back to baseline Time Spent with Patient Total time spent providing and/or coordinating discharge services: Less than 30 minutes Objective Labs Result Diagrams: 12/16/18 06:50 Exam Vital Signs (past 8 hours): Oxygen Delivery Method Room Air Narrative Exam Narrative: Blood pressure 133/81, pulse of 80, temperature 97.9? Patient's abdomen is soft, nontender. Uterus is firm, at U, appropriately tender. Dressing is clean dry and intact. Mild lochia. Extremities with trace edema and nontender. Patient's blood type is A positive she is rubella immune. Discharge Plan Discharge Plan Patient Disposition: Home Discharge Med Rec/Prescriptions Prescriptions: New oxycodone-acetaminophen 5-325 mg Tablet 2 tab PO Q4HR PRN (Reason: Pain, Severe (7-10)) Qty: 40 RF: 0 ibuprofen 600 mg Tablet 600 mg PO Q6HR PRN (Reason: As Needed For Fever/Mild Pain) Qty: 30 RF: 0 docusate sodium 250 mg Capsule 250 mg PO DAILY Qty: 20 RF: 0 ferrous gluconate 324 mg (37.5 mg iron) tablet 324 mg PO BID Qty: 60 RF: 0 Continued prenat.vits,abran,idd-clos-rgams [ Vitamin] tablet 1 tab PO DAILY RF: 0 Double Electric Breast Pump 1 each TOP .prn Qty: 1 RF: 0 Follow up/Referrals: Mala Cat MD [Physician] - (Follow up with Dr. Cat on 12/21/18 at 11:30 AM for incision check and dressing removal.) Provider Discharge Instructions Diet: Regular Activity: nothing in vagina for 6 weeks Skin/Wound/Dressing Care Report to your healthcare provider any signs of infection, such as:: chills, fever, increased pain and unusual redness Dressing: leave dressing in place Visit Report/Discharge Packet Stand Alone Forms: Discharge: Care Visit Report Forms: Stroke Signs & Symptoms Discharge Data Attending Provider: Mala Cat Admit Date/Time: 12/14/18 07:07
--- NOTE | 2018-12-16 07:46 | P.DS_ITS ---
Discharge Providers Date of admission: 12/14/18 07:07 Discharge Date: 12/16/18 Consults: 12/14/18 08:01 Consult to Anesthesiology Urgent Comment: Consulting Provider: Anesthesiologist Reason for consultation: epidural Has provider been notified: No 12/15/18 02:17 Consult to Retail Coverage Merchandiser Routine Comment: Discharge provider: Gabriela Galvez MD Summary Date Patient Seen: 12/16/18 Time Patient Seen: 07:43 Procedures: Pitocin induction, epidural catheter, primary low-transverse section Hospital Course: Patient was admitted for postdates induction. She received epidural catheter for pain control. She had 1st stage arrest. Patient had a primary low- transverse section. She did well . She denies any signs or symptoms of preeclampsia. She is urinating and ambulating well. She is passing gas. Her pain is under control. She is breast-feeding without difficulty. Peripartum Data Delivery Method: Section Procedures: Pitocin induction, epidural catheter, primary low-transverse section complications: none 1: Gender: Female Disposition of : home Discharge Diagnosis (1) Delivery by section using transverse incision of lower segment of uterus: Status: Acute (2) Acute blood loss anemia: Status: Acute Status at Discharge Cognitive/behavioral status at discharge: oriented Functional status at discharge: independent ambulation Overall status at discharge: patient is progressing back to baseline Time Spent with Patient Total time spent providing and/or coordinating discharge services: Less than 30 minutes Objective Labs Result Diagrams: 12/16/18 06:50 Exam Vital Signs (past 8 hours): Oxygen Delivery Method Room Air Narrative Exam Narrative: Blood pressure 133/81, pulse of 80, temperature 97.9? Patient's abdomen is soft, nontender. Uterus is firm, at U, appropriately tender. Dressing is clean dry and intact. Mild lochia. Extremities with trace edema and nontender. Patient's blood type is A positive she is rubella immune. Discharge Plan Discharge Plan Patient Disposition: Home Discharge Med Rec/Prescriptions Prescriptions: New oxycodone-acetaminophen 5-325 mg Tablet 2 tab PO Q4HR PRN (Reason: Pain, Severe (7-10)) Qty: 40 RF: 0 ibuprofen 600 mg Tablet 600 mg PO Q6HR PRN (Reason: As Needed For Fever/Mild Pain) Qty: 30 RF: 0 docusate sodium 250 mg Capsule 250 mg PO DAILY Qty: 20 RF: 0 ferrous gluconate 324 mg (37.5 mg iron) tablet 324 mg PO BID Qty: 60 RF: 0 Continued prenat.vits,abran,owu-lwnr-nwtbh [ Vitamin] tablet 1 tab PO DAILY RF: 0 Double Electric Breast Pump 1 each TOP .prn Qty: 1 RF: 0 Follow up/Referrals: Mala Cat MD [Physician] - (Follow up with Dr. Cat on 12/21/18 at 11:30 AM for incision check and dressing removal.) Provider Discharge Instructions Diet: Regular Activity: nothing in vagina for 6 weeks Skin/Wound/Dressing Care Report to your healthcare provider any signs of infection, such as:: chills, fever, increased pain and unusual redness Dressing: leave dressing in place Visit Report/Discharge Packet Stand Alone Forms: Discharge: Care Visit Report Forms: Stroke Signs & Symptoms Discharge Data Attending Provider: Mala Cat Admit Date/Time: 12/14/18 07:07
[2018-12-16] MEDS: DOCUSATE 250 MG CAPSULE PO (09:32)
[2018-12-16] MEDS: PRENATAL VIT,CALC/IRON/FOLIC 1 TABLET 1 TAB PO (09:32)
[2018-12-16] MEDS: OXYCODONE/ACETAMINOPHEN 5/325 TABLET 2 TAB PO ×2 (09:35→16:03)
[2018-12-16] MEDS: IBUPROFEN 600 MG TABLET PO (11:32)
[2018-12-16 13:21] VITALS: BP 137/87; PULSE 85; RESP 16; TEMP 36.5
== END 2018-12-16 16:50 | disposition home or self-care (01) | DRG 540 ==
PROVIDERS: Specialist; Admitting Provider Obstetrics & Gynecology; Visit Provider Obstetrics & Gynecology
PROC: 10D00Z1 Extraction of Products of Conception, Low, Open Approach (ICD-10-PCS; CPT 59514; principal; 2018-12-15 00:25)
DX: O48.0 Post-term pregnancy (principal); O62.1 Secondary uterine inertia; Z37.0 Single live birth; Z3A.40 40 weeks gestation of pregnancy; D62 Acute posthemorrhagic anemia
CPT/HCPCS: 01967; 01968; 36415; 59050; 59514; 76815; 85025; 86850; 86900; 86901; G0379; J0690; J1885; J2274; J2405; J2590; J3010

== ENCOUNTER → 2020-10-29 14:15 | Outpatient (CLI) | payer OTHER, MEDICAID, SELFPAY ==
[2020-10-29] MEDS: COVID-19 VACC #1, MRNA(MOD) 100 MCG/0.5 ML VIAL IM (14:17)
== END ==
PROVIDERS: Visit Provider Internal Medicine
DX: Z23 Encounter for immunization (principal)
CPT/HCPCS: 0011A; 91301

== ENCOUNTER → 2020-11-27 14:55 | Outpatient (CLI) | payer OTHER, MEDICAID, SELFPAY ==
[2020-11-27] MEDS: COVID-19 VACC #2, MRNA(MOD) 100 MCG/0.5 ML VIAL IM (15:03)
== END ==
PROVIDERS: Visit Provider Internal Medicine
DX: Z23 Encounter for immunization (principal)
CPT/HCPCS: 0012A; 91301

== ENCOUNTER → 2021-05-16 10:32 | Outpatient (CLI) | payer OTHER, MEDICAID, SELFPAY ==
--- NOTE | 2021-05-16 10:58 | DI.CT.S_ITS ---
PROCEDURE: CT ABDOMEN PELVIS W CON INDICATIONS: Right lower quadrant pain TECHNIQUE: After the administration of oral and intravenous contrast, axial sections were acquired from the lung bases to the pubic symphysis. Coronal and sagittal reformats were performed. For radiation dose reduction, the following was used: automated exposure control, adjustment of mA and/or kV according to patient size. COMPARISON:None. FINDINGS: Image quality: Excellent. Lung bases: Lung bases are clear. Heart size is normal. Solid organs: Liver: The liver has no mass or intrahepatic biliary ductal dilatation. The portal vein and hepatic veins are patent. Biliary: The gallbladder has no gallstones, pericholecystic fluid, gallbladder wall thickening, or surrounding inflammatory change. Pancreas: The pancreas has no mass or ductal dilatation. There is no surrounding inflammation. Spleen: Normal size. There are no masses. Adrenals: No hypertrophy or nodules. Kidneys: No obstructive calculus or hydronephrosis. No solid mass. No cystic mass. Peritoneum and bowel: There is a small hiatal hernia. The distal esophagus and stomach are normal. The small bowel has a normal caliber and appearance. The terminal ileum is normal. The large bowel has a normal caliber and appearance. The appendix is normal. No free fluid or air. Nodes and vessels: No retroperitoneal or mesenteric adenopathy by size criteria. Aorta and inferior vena cava are normal in size. Miscellaneous: No abdominal wall mass or hernia. PELVIS: Genitourinary: The bladder has no wall thickening or mass. No bladder calcifications. The bladder has a small 1.2 x 2.1 centimeter urachal cyst. Miscellaneous: No inguinal hernias or adenopathy. Bones: No suspicious bony lesions. No vertebral body compression fractures. IMPRESSION: 1. No acute abdominal or pelvic abnormality. 2. Normal appendix. 3. No kidney stones. 4. Urachal cyst is seen in the superior bladder. This is benign, but can predispose to infection, calculi, or neoplasms. Dictated by: Srinivas Melvin M.D. on 05/16/2021 at 12:48 Approved by: Srinivas Melvin M.D. on 05/16/2021 at 12:57
== END ==
PROVIDERS: PCP Student in an Organized Health Care Education/Training Program; Referring Provider Student in an Organized Health Care Education/Training Program; Visit Provider Student in an Organized Health Care Education/Training Program
DX: R10.31 Right lower quadrant pain (principal); Q64.4 Malformation of urachus
CPT/HCPCS: 74177

== ENCOUNTER → 2022-05-30 09:25 | Outpatient (CLI) | payer OTHER, MEDICAID, SELFPAY ==
[2022-05-30 10:36] LABS: Hematocrit 39.8 % (36-46); Hemoglobin 13.5 g/dL (12.0-16.0); Mean Corpuscular Hemoglobin 31.4 PG (26-34); Mean Corpuscular Volume 92.4 fL (80-100); Platelet Count 222 X10^3/uL (150-400); White Blood Cell Count 5.5 X10^3/uL (4.5-11.0)
[2022-05-30 10:50] LABS: Appearance Urine UA SL CLOUDY; Bilirubin Urine UA NEGATIVE (NEGATIVE); Color Urine UA YELLOW; Glucose Urine UA NEGATIVE (Negative); Ketones Urine UA NEGATIVE (NEGATIVE); Leukocyte Esterase Urine UA NEGATIVE (NEGATIVE); Nitrite Urine UA NEGATIVE (Negative); Occult Blood Urine UA NEGATIVE (Negative); Protein Urine UA NEGATIVE (Negative); Specific Gravity Urine UA 1.015 (1.000-1.035); Urobilinogen Urine UA 0.2 E.U./dL (0.2)
[2022-05-30 10:51] LABS: Alanine Aminotransferase 15 IU/L (<35); Albumin 4.1 g/dL (3.5-5.0); Albumin Globulin Ratio 1.4 (1.0-2.8); Alkaline Phosphatase 61 U/L (38-126); Aspartate Aminotransferase 17 IU/L (14-36); Bilirubin Total 0.5 mg/dL (0.2-1.3); Blood Urea Nitrogen 11 mg/dL (7-17); Calcium 8.8 mg/dL (8.4-10.2); Carbon Dioxide 25 mmol/L (22-32); Chloride 104 mmol/L (98-107); Cholesterol 197 mg/dL (140-199); Estimated Glomerular Filt Rate > 60 mL/min (>60); Globulin 2.9 g/dL (1.7-4.1); Glucose 99 mg/dL (70-100); HDL Cholesterol 62 mg/dL (40-60); HEMOLYSIS < 15 (0-50); LDL Cholesterol Calculated 121 mg/dL (<100); Potassium 4.4 mmol/L (3.4-5.1); Sodium 137 mmol/L (137-145); Triglycerides 69 mg/dL (35-150)
[2022-05-30 11:07] LABS: Vitamin D 25 Hydroxy (D3) 19.1 ng/mL (30.0-100.0)
[2022-05-30 11:08] LABS: Free T3, Triiodothyronine Free 3.55 pg/mL (2.77-5.27); Free T4, Direct Thyroxine 1.12 ng/dL (0.78-2.19)
[2022-05-30 11:22] LABS: Thyroid Stimulating Hormone 1.41 uIU/mL (0.47-4.68)
[2022-05-30 11:35] LABS: Creatinine Urine Random 103.5 mg/dL
[2022-05-30 11:37] LABS: Protein (Total) Urine Random < 5 mg/dL (0-12); Protein Creatinine Ratio Urine 0.04 GRAM/24H
[2022-05-30 11:42] LABS: Amorphous Sediment Urine 2+; Bacteria Urine Few (2-10); Culture Indicated Urine Specimen Cultured; RBC Urine None Seen (0-5/HPF); Squamous Epithelial Cell Urine 0-1 /HPF (0-5/HPF); WBC Urine 0-1/HPF (0-5/HPF)
== END ==
PROVIDERS: PCP Family Medicine; Referring Provider Family Medicine; Visit Provider Family Medicine
DX: E66.9 Obesity, unspecified (principal); E88.81 Metabolic syndrome and other insulin resistance; F39 Unspecified mood [affective] disorder; F43.29 Adjustment disorder with other symptoms; I10 Essential (primary) hypertension; E55.9 Vitamin D deficiency, unspecified
CPT/HCPCS: 36415; 80053; 80061; 81001; 82306; 82570; 84156; 84439; 84443; 84481; 85027; 87086

== ENCOUNTER → 2023-11-04 12:13 | Outpatient (CLI) | payer OTHER, MEDICAID, SELFPAY ==
[2023-11-04 14:41] LABS: HEMOLYSIS < 15 (0-50)
[2023-11-04 14:47] LABS: BUN Creatinine Ratio 17.9 (6-22); Blood Urea Nitrogen 14 mg/dL (7-17); Calcium 9.4 mg/dL (8.4-10.2); Carbon Dioxide 22 mmol/L (22-32); Chloride 106 mmol/L (98-107); Cholesterol 241 mg/dL (140-199); Estimated Glomerular Filt Rate > 60 mL/min (>60); Glucose 93 mg/dL (70-100); HDL Cholesterol 50 mg/dL (40-60); LDL Cholesterol Calculated 173 mg/dL (<100); Potassium 4.6 mmol/L (3.4-5.1); Sodium 136 mmol/L (137-145); Triglycerides 91 mg/dL (35-150)
[2023-11-04 15:07] LABS: Vitamin D 25 Hydroxy (D3) 40.9 ng/mL (30.0-100.0)
[2023-11-04 15:24] LABS: Creatinine Urine Random 160.1 mg/dL
[2023-11-04 15:29] LABS: Microalbumi Creatinin Ratio Ur 6.2 ug/mg CR (<30)
[2023-11-05 00:20] LABS: High Sensitivity CRP - Cardiac 0.5 mg/L (1.0-3.0)
== END ==
PROVIDERS: PCP Family Medicine; Referring Provider Family Medicine; Visit Provider Family Medicine
DX: F90.9 Attention-deficit hyperactivity disorder, unspecified type (principal); E55.9 Vitamin D deficiency, unspecified; I10 Essential (primary) hypertension; E88.810 Metabolic syndrome; E88.818 Other insulin resistance; E66.9 Obesity, unspecified; K11.5 Sialolithiasis
CPT/HCPCS: 36415; 80048; 80061; 82043; 82306; 82570; 86140

== ENCOUNTER → 2024-09-01 10:32 | Outpatient (CLI) | payer OTHER, SELFPAY ==
[2024-09-01 12:08] LABS: Add Manual Diff / Slide Review NO; Basophils Absolute Auto 0 /uL (0-100); Basophils Percent Auto 0.7 % (0-2); Eosinophils Absolute Auto 100 /uL (0-450); Eosinophils Percent Auto 2.1 % (2-4); Hematocrit 40.9 % (36-46); Hemoglobin 14.2 g/dL (12.0-16.0); Lymphocytes Absolute Auto 2400 /uL (1100-4500); Lymphocytes Percent Auto 35.4 % (25-40); Mean Corpuscular HGB Conc 34.6 % (30-36); Mean Corpuscular Hemoglobin 31.9 PG (26-34); Mean Corpuscular Volume 92.1 fL (80-100); Monocytes Absolute Auto 500 /uL (0-900); Monocytes Percent Auto 7.3 % (3-14); Neutrophils Absolute Auto 3600 /uL (1500-7000); Neutrophils Percent Auto 54.5 % (50-75); Platelet Count 228 X10^3/uL (150-400); Red Blood Cell Count 4.43 X10^6/uL (4.0-5.2); Red Cell Distribution Width 13.1 % (11.6-14.8); White Blood Cell Count 6.7 X10^3/uL (4.5-11.0)
[2024-09-01 12:28] LABS: Alanine Aminotransferase 19 IU/L (<35); Albumin 4.2 g/dL (3.5-5.0); Albumin Globulin Ratio 1.6 (1.0-2.8); Alkaline Phosphatase 47 U/L (38-126); Aspartate Aminotransferase 22 IU/L (14-36); BUN Creatinine Ratio 26.3 (6-22); Bilirubin Total 0.6 mg/dL (0.2-1.3); Blood Urea Nitrogen 21 mg/dL (7-17); Calcium 9.4 mg/dL (8.4-10.2); Carbon Dioxide 22 mmol/L (22-32); Chloride 107 mmol/L (98-107); Cholesterol 193 mg/dL (140-199); Estimated Glomerular Filt Rate > 60 mL/min (>60); Globulin 2.6 g/dL (1.7-4.1); Glucose 80 mg/dL (70-100); HDL Cholesterol 46 mg/dL (40-60); HEMOLYSIS < 15 (0-50); LDL Cholesterol Calculated 130 mg/dL (<100); Sodium 136 mmol/L (137-145); Total Protein 6.8 g/dL (6.3-8.2); Triglycerides 87 mg/dL (35-150)
== END ==
PROVIDERS: PCP Family Medicine; Referring Provider Family Medicine; Visit Provider Family Medicine
DX: I10 Essential (primary) hypertension (principal); E78.5 Hyperlipidemia, unspecified
CPT/HCPCS: 36415; 80053; 80061; 85025

== ENCOUNTER → 2024-09-22 08:30 | Outpatient (CLI) | payer OTHER, SELFPAY ==
--- NOTE | 2024-09-22 08:31 | DI.MG.S_ITS ---
BILATERAL DIGITAL SCREENING MAMMOGRAM 3D/2D WITH CAD: 09/22/2024 CLINICAL: Routine screening. Baseline exam. No prior exams were available for comparison. There are scattered areas of fibroglandular density (category b / 25%-50% glandular tissue). Current study was also evaluated with a Computer Aided Detection (CAD) system. No significant masses, calcifications, or other findings are seen in either breast. IMPRESSION: NEGATIVE There is no mammographic evidence of malignancy. A 1 year screening mammogram is recommended. Based on the Tyrer Cuzick model (a risk assessment model) the patient's lifetime risk is 9.3% and her 10 year risk is 1.5%. According to the ACR, ACS, and NCCN guidelines, an annual breast MRI exam along with mammogram is recommended if the patient's lifetime risk is 20% or greater. This exam was interpreted at Station ID: [id number]. NOTE: For mammograms, a report in lay terms will be sent to the patient. Approximately 15% of breast malignancies will not be visualized mammographically. In the management of a palpable breast mass, a negative mammogram must not discourage biopsy of a clinically suspicious lesion. Electronically Signed By: Terrence carr/trae:09/23/2024 14:42:27 letter sent: Normal Exam ACR BI-RADS Category 1: Negative
== END ==
LOC: MAMMO 08:30
PROVIDERS: PCP Family Medicine; Referring Provider Family Medicine; Visit Provider Family Medicine
DX: Z12.31 Encounter for screening mammogram for malignant neoplasm of breast (principal)
CPT/HCPCS: 77063; 77067

== ENCOUNTER → 2025-04-13 09:44 | Outpatient (CLI) | payer OTHER, SELFPAY ==
[2025-04-13 13:07] LABS: Ferritin 23 ng/mL (6-137)
[2025-04-15 07:36] LABS: Insulin Level Total 5.3 uIU/mL (2.6-24.9)
== END ==
PROVIDERS: PCP Family Medicine; Referring Provider Family Medicine; Visit Provider Family Medicine
DX: L65.9 Nonscarring hair loss, unspecified (principal); E61.1 Iron deficiency; E66.9 Obesity, unspecified; N95.1 Menopausal and female climacteric states; E88.810 Metabolic syndrome; E88.819 Insulin resistance, unspecified
CPT/HCPCS: 36415; 82627; 82728; 83525; 84403